=== PATIENT | male | born 2000 | race Hispanic/Latino ===

== ENCOUNTER 2022-09-17 16:00 | Emergency (ER) | payer OTHER ==
[~2022-09-17] VITALS: Ht 167.6 cm; Wt 53.5 kg
[2022-09-17 16:40] LABS: BASOPHILS % (AUTO) 0.2 % (0.0-5.0); EOSINOPHILS % (AUTO) 0.2 % (0.0-8.0); HEMATOCRIT 42.9 % (42-54); LYMPHOCYTES % (AUTO) 21.9 % (21.0-51.0); MEAN CORPUSCULAR HEMOGLOBIN 27.8 pg (27.0-33.0); MEAN CORPUSCULAR HGB CONC 33.1 g/dL (32.0-36.0); MONOCYTES % (AUTO) 17.4 % (3.0-13.0); NEUTROPHILS % (AUTO) 60.1 % (40.0-77.0); PLATELET COUNT (AUTO) 142 K/uL (130-400); RED BLOOD CELL COUNT(AUTO) 5.11 MIL/uL (4.50-6.20); RED CELL DISTRIBUTION WIDTH 12.4 % (11.0-15.5); WHITE BLOOD COUNT (AUTO) 4.1 K/uL (4.8-10.8)
[2022-09-17 16:51] LABS: CREATININE 0.9 mg/dL (0.5-1.5); POTASSIUM 4.3 mmol/L (3.5-5.1)
[2022-09-17 16:55] LABS: ALBUMIN 3.3 g/dL (3.5-5.0); TOTAL PROTEIN, SERUM 6.6 g/dL (6.0-8.3)
[2022-09-17] MEDS ORDERED: ACETAMINOPHEN 500 MG TABLET PO ONE (17:00)
[2022-09-17] MEDS ORDERED: KETOROLAC 15MG/ML VIAL (15MG/ML) IV ONE (17:00)
[2022-09-17] MEDS ORDERED: 0.9%NACL 1000ML 1,000 ML IV ONE (17:00)
[2022-09-17 17:10] LABS: BAND NEUTROPHILS % (MANUAL) 30 % (0-2); EOSINOPHILS % (MANUAL) 1 % (1-6); LYMPHOCYTES % (MANUAL) 29 % (22-44); MAN.DIFF COMMENT-IMPRESSION MANUAL DIFFERENTIAL; MONOCYTES % (MANUAL) 14 % (2-9); PLATELET MORPHOLOGY COMMENT ADEQUATE; REACTIVE LYMPHOCYTES 1 % (0-0); SEGMENTED NEUTROPHILS % 25 % (40-70)
[2022-09-17 18:02] LABS: APPEARANCE,URINE CLEAR (CLEAR); BILIRUBIN,URINE NEGATIVE (NEGATIVE); COLOR,URINE YELLOW (YELLOW); GLUCOSE, URINE (UA) NEGATIVE (NEGATIVE); KETONES,URINE 60 mg/dL (NEGATIVE); LEUKOCYTE ESTERASE ,URINE NEGATIVE Leu/uL (NEGATIVE); NITRATE,URINE NEGATIVE (NEGATIVE); OCCULT BLOOD,URINE NEGATIVE (NEGATIVE); PH,URINE 5.5 (5.0-8.0); PROTEIN,URINE 50 mg/dL (NEGATIVE); UROBILINOGEN,URINE 0.2 mg/dL (0.2-1.0)
[2022-09-17] MEDS ORDERED: DIATR MEGLU/DIATRIZOATE SODIUM 30 ML BOTTLE ONE (18:15)
[2022-09-17 18:28] LABS: MUCUS,URINE FEW LPF (None Seen); RBC,URINE 0-1 /HPF (0-1)
[2022-09-17] MEDS ORDERED: IOHEXOL 350 MG/ML 100ML INFUS..BTL IV ONE (18:49)
[2022-09-17] MEDS ORDERED: ONDANSETRON 4MG INJ IVP ONE (19:00)
[2022-09-17] MEDS ORDERED: ZOSYN 3.375GM +NS 50ML IV ONE (19:30)
[2022-09-17] MEDS ORDERED: DiphenhydrAMINE HCL 50 MG/ML VIAL ONE (19:41)
[2022-09-17] MEDS ORDERED: DiphenhydrAMINE HCL 50 MG/ML VIAL IV ONE (20:00)
[2022-09-17] MEDS ORDERED: LEVOFLOXACIN 750 MG/D5W 150ML BAG IVPB SCH (21:01)
[2022-09-17] MEDS ORDERED: LEVO750T68 PO (22:10)
[2022-09-17 23:00] VITALS: BP 101/58
== END 2022-09-17 23:47 | disposition home or self-care (01) ==
LOC: EDH 16:00
DX: K52.9 Noninfective gastroenteritis and colitis, unspecified (principal); E86.0 Dehydration; D72.825 Bandemia
CPT/HCPCS: 99285; 74177; 96365; 96375; 96367; 96361; 80053; 83690; 85025; 87040 ×2; 87088; 83605; 81001; 36415; 84145; J1200; Q9963; J1956; J2405; J2543; J1885; Q9967